=== PATIENT | female | born 1945 | race Caucasian/White ===

== ENCOUNTER 2016-10-13 20:25 | Inpatient (IN) | payer BC, MEDICARE ==
[2016-10-13] MEDS ORDERED: SODIUM CHLORIDE 0.9% 1,000 ML IV STA (20:40)
[2016-10-13] MEDS ORDERED: SODIUM CHLORIDE 0.9% 500 ML IV STA (20:40)
[2016-10-13 21:08] LABS: Basophils % (A) 0 %; CH 29.6; CHCM 33.1; Eosinophils # (A) 0.2 k/uL (0-0.7); Eosinophils % (A) 2 %; HCT 44.8 % (34.0-46.0); HDW 2.47; HGB 14.8 gm/dL (11.4-16.0); Luc # (Auto) 0.19; Luc % (Auto) 2; Lymphocytes # (A) 1.6 k/uL (1.0-4.8); Lymphocytes % (A) 16 %; MCH 29.5 pg (25.0-35.0); MCHC 32.9 g/dL (31.0-37.0); MCV 89.6 fL (80.0-100.0); Monocytes # (A) 0.6 k/uL (0-1.0); Monocytes % (A) 6 %; Neutrophils # (A) 7.2 k/uL (1.3-7.7); Neutrophils % (A) 73 %; RDW 13.3 % (11.5-15.5); WBC 9.8 k/uL (3.8-10.6); WBC (Perox) 9.32
[2016-10-13 21:15] LABS: ALT 24 U/L (9-52); AST 15 U/L (14-36); Alkaline Phosphatase 92 U/L (38-126); Anion Gap 11 mmol/L; Blood Urea Nitrogen 6 mg/dL (7-17); Calcium 10.4 mg/dL (8.4-10.2); Carbon Dioxide 28 mmol/L (22-30); Chloride 103 mmol/L (98-107); Glucose 219 mg/dL (74-99); Non-African American GFR(MDRD) >60 (>60 ml/min/1.73 sqM); Potassium 4.1 mmol/L (3.5-5.1); Sodium 142 mmol/L (137-145); Total Bilirubin 0.3 mg/dL (0.2-1.3); Total Protein 7.6 g/dL (6.3-8.2)
[2016-10-13 21:19] LABS: Partial Thromboplastin Time 23.6 sec (22.0-30.0); Prothrombin Time 9.9 sec (9.0-12.0)
[2016-10-13 21:21] LABS: Glucose,Whole Blood 182 mg/dL (75-99)
[2016-10-13 21:22] LABS: Creatine Kinase 41 U/L (30-135)
--- NOTE | 2016-10-13 21:31 | ED ---
General Adult HPI - General Chief complaint: Neuro Symptoms/Deficit Stated complaint: Numbness on left side Time Seen by Provider: 10/13/16 20:39 Source: patient, RN notes reviewed, old records reviewed Mode of arrival: ambulatory Limitations: no limitations - History of Present Illness Initial comments: This is a 71-year-old female the ER for evaluation. This patient presents today for evaluation of neurological impairment, paresthesias of left leg. Patient has history of smoking, but otherwise is not follow-up with her doctor, is a known diabetic takes no medication. Patient has no fever, no chest pain, no shortness of breath. Patient's symptoms started this afternoon, and continued at this time. Patient is able to ambulate, able to speak, family admits patients never seen a physician before - Related Data Home Medications Medication Instructions Recorded Confirmed Aspirin EC [Ecotrin] 325 mg PO DAILY PRN 10/13/16 10/13/16 Cholecalciferol [Vitamin D3] 1,000 unit PO DAILY 10/13/16 10/13/16 Multivitamins, Thera [Multivitamin 1 tab PO DAILY 10/13/16 10/13/16 (formulary)] Vit A/Vit C/Vit E/Zinc/Copper 1 cap PO DAILY 10/13/16 10/13/16 [ICAPS SOFTGEL] Allergies Allergy/AdvReac Type Severity Reaction Status Date / Time No Known Allergies Allergy Verified 10/13/16 21:12 Review of Systems ROS Statement: Those systems with pertinent positive or pertinent negative responses have been documented in the HPI. ROS Other: All systems not noted in ROS Statement are negative. Past Medical History Past Medical History: No Reported History History of Any Multi-Drug Resistant Organisms: None Reported Past Surgical History: Appendectomy Past Psychological History: No Psychological Hx Reported Smoking Status: Current every day smoker Past Alcohol Use History: None Reported Past Drug Use History: None Reported General Exam - General Exam Comments Initial Comments: NIH of 0 Limitations: no limitations General appearance: alert, in no apparent distress Head exam: Present: atraumatic, normocephalic, normal inspection Eye exam: Present: normal appearance, PERRL, EOMI. Absent: scleral icterus, conjunctival injection, periorbital swelling ENT exam: Present: normal exam, mucous membranes moist Neck exam: Present: normal inspection. Absent: tenderness, meningismus, lymphadenopathy Respiratory exam: Present: normal lung sounds bilaterally. Absent: respiratory distress, wheezes, rales, rhonchi, stridor Cardiovascular Exam: Present: regular rate, normal rhythm, normal heart sounds. Absent: systolic murmur, diastolic murmur, rubs, gallop, clicks GI/Abdominal exam: Present: soft, normal bowel sounds. Absent: distended, tenderness, guarding, rebound, rigid Extremities exam: Present: normal inspection, full ROM, normal capillary refill. Absent: tenderness, pedal edema, joint swelling, calf tenderness Back exam: Present: normal inspection Neurological exam: Present: alert, oriented X3, CN II-XII intact Psychiatric exam: Present: normal affect, normal mood Skin exam: Present: warm, dry, intact, normal color. Absent: rash Course Vital Signs 10/13/16 20:30 Temperature 97.8 F Pulse Rate 87 Respiratory 18 Rate Blood Pressure 202/93 O2 Sat by Pulse 96 Oximetry - Reevaluation(s) Reevaluation #1: 10/13/16 21:55 Patient's symptoms at this point have no significant improvement, there is no neurological deficit found, patient still with paresthesias EKG Findings - EKG Comments: EKG Findings:: EKG shows normal sinus or mastoid 7, pO2 2, QRS 94, QTC 427 Medical Decision Making - Medical Decision Making 71 female ER for evaluation of neurological deficit paresthesias left leg. Left arm. Patient does have diabetes high blood pressure and does not follow with DrLela as well as smoking, patient does have what appears to be old infarct on CT. Patient be admitted for neurological evaluation and control - Lab Data Result diagrams: 10/13/16 20:50 10/13/16 20:50 Lab Results 10/13/16 10/13/16 10/13/16 Range/Units 20:50 20:50 20:50 WBC 9.8 (3.8-10.6) k/uL RBC 5.00 (3.80-5.40) m/uL Hgb 14.8 (11.4-16.0) gm/dL Hct 44.8 (34.0-46.0) % MCV 89.6 (80.0-100.0) fL MCH 29.5 (25.0-35.0) pg MCHC 32.9 (31.0-37.0) g/dL RDW 13.3 (11.5-15.5) % Plt Count 300 (150-450) k/uL Neutrophils % 73 % Lymphocytes % 16 % Monocytes % 6 % Eosinophils % 2 % Basophils % 0 % Neutrophils # 7.2 (1.3-7.7) k/uL Lymphocytes # 1.6 (1.0-4.8) k/uL Monocytes # 0.6 (0-1.0) k/uL Eosinophils # 0.2 (0-0.7) k/uL Basophils # 0.0 (0-0.2) k/uL PT (9.0-12.0) sec INR (<1.1) APTT (22.0-30.0) sec Sodium 142 (137-145) mmol/L Potassium 4.1 (3.5-5.1) mmol/L Chloride 103 (98-107) mmol/L Carbon Dioxide 28 (22-30) mmol/L Anion Gap 11 mmol/L BUN 6 L (7-17) mg/dL Creatinine 0.60 (0.52-1.04) mg/dL Est GFR (MDRD) Af Amer >60 (>60 ml/min/1.73 sqM) Est GFR (MDRD) Non-Af >60 (>60 ml/min/1.73 sqM) Glucose 219 H (74-99) mg/dL POC Glucose (mg/dL) (75-99) mg/dL POC Glu Statistical Analyst ID Calcium 10.4 H (8.4-10.2) mg/dL Total Bilirubin 0.3 (0.2-1.3) mg/dL AST 15 (14-36) U/L ALT 24 (9-52) U/L Alkaline Phosphatase 92 (38-126) U/L Total Creatine Kinase 41 (30-135) U/L CK-MB (CK-2) 1.2 (0.0-2.4) ng/mL CK-MB (CK-2) Rel Index 2.9 Troponin I <0.012 (0.000-0.034) ng/mL Total Protein 7.6 (6.3-8.2) g/dL Albumin 4.4 (3.5-5.0) g/dL 10/13/16 10/13/16 Range/Units 20:50 21:20 WBC (3.8-10.6) k/uL RBC (3.80-5.40) m/uL Hgb (11.4-16.0) gm/dL Hct (34.0-46.0) % MCV (80.0-100.0) fL MCH (25.0-35.0) pg MCHC (31.0-37.0) g/dL RDW (11.5-15.5) % Plt Count (150-450) k/uL Neutrophils % % Lymphocytes % % Monocytes % % Eosinophils % % Basophils % % Neutrophils # (1.3-7.7) k/uL Lymphocytes # (1.0-4.8) k/uL Monocytes # (0-1.0) k/uL Eosinophils # (0-0.7) k/uL Basophils # (0-0.2) k/uL PT 9.9 (9.0-12.0) sec INR 1.0 (<1.1) APTT 23.6 (22.0-30.0) sec Sodium (137-145) mmol/L Potassium (3.5-5.1) mmol/L Chloride (98-107) mmol/L Carbon Dioxide (22-30) mmol/L Anion Gap mmol/L BUN (7-17) mg/dL Creatinine (0.52-1.04) mg/dL Est GFR (MDRD) Af Amer (>60 ml/min/1.73 sqM) Est GFR (MDRD) Non-Af (>60 ml/min/1.73 sqM) Glucose (74-99) mg/dL POC Glucose (mg/dL) 182 H (75-99) mg/dL POC Glu Statistical Analyst ID Maddison Anderson Calcium (8.4-10.2) mg/dL Total Bilirubin (0.2-1.3) mg/dL AST (14-36) U/L ALT (9-52) U/L Alkaline Phosphatase (38-126) U/L Total Creatine Kinase (30-135) U/L CK-MB (CK-2) (0.0-2.4) ng/mL CK-MB (CK-2) Rel Index Troponin I (0.000-0.034) ng/mL Total Protein (6.3-8.2) g/dL Albumin (3.5-5.0) g/dL - Radiology Data Radiology results: report reviewed (CT brain does appear to show old infarcts), image reviewed Disposition Clinical Impression: Cerebrovascular accident, Transient cerebral ischemia, Paresthesia Disposition: ADMITTED IP TO THIS [facility] Condition: Undetermined Referrals: None,Stated [Primary Care Provider] - 1-2 days
[2016-10-13 21:36] LABS: Creatine Kinase MB 1.2 ng/mL (0.0-2.4); Troponin I <0.012 ng/mL (0.000-0.034)
--- NOTE | 2016-10-13 21:39 | CT ---
EXAMINATION TYPE: CT brain wo con DATE OF EXAM: 10/13/2016 9:26 PM COMPARISON: NONE HISTORY: Neuro deficits Left sided CT DLP: 1121 mGycm Automated exposure control for dose reduction was used. FINDINGS: There is hypodensity in the right occipital lobe consistent with old infarct. There is no mass effect nor midline shift. There is 5 mm hypodensity in the genuine right internal capsule consistent with o ld lacunar infarct. Calvarium is intact. There is mild cerebral cortical atrophy. There is no sign of intracranial hemorrhage. There is some hypodensity in the white matter both parietal lobes. IMPRESSION: Old right-sided infarcts. Cerebral atrophy. No acute abnormality. Chronic small vessel ischemia.
[2016-10-13] MEDS: ASPIRIN 325 MG TAB PO STA ×2 (22:34→23:34)
[2016-10-13 23:29] VITALS: BMI 25.4
[2016-10-13] MEDS: SODIUM CHLORIDE 0.9% 1,000 ML IV SCH (23:33)
[2016-10-14 04:49] LABS: Cholesterol 219 mg/dL (<200); HDL Cholesterol 41 mg/dL (40-60); Triglycerides 300 mg/dL (<150)
[2016-10-14] MEDS: INSULIN LISPRO (humaLOG) 300 UNIT/3 ML VIAL SQ SCH ×3 (06:15→17:29)
[2016-10-14 06:18] LABS: Glucose,Whole Blood 125 mg/dL (75-99)
[2016-10-14] MEDS: ASPIRIN 325 MG TAB PO SCH (08:47)
[2016-10-14 11:03] LABS: Hemoglobin A1C 7.6 % (4.2-6.1)
--- NOTE | 2016-10-14 12:01 | US ---
EXAMINATION TYPE: US carotid duplex BILAT DATE OF EXAM: 10/14/2016 COMPARISON: NONE CLINICAL HISTORY: Stenosis. EXAM MEASUREMENTS: RIGHT: Peak Systolic Velocity (PSV) cm/sec ----- Right CCA: 83.5 ----- Right ICA: 113.3 ----- Right ECA: 135.7 ICA/CCA ratio: 1.4 RIGHT: End Diastole cm/sec ----- Right CCA: 22.7 ----- Right ICA: 36.6 ----- Right ECA: 9.7 LEFT: Peak Systolic Velocity (PSV) cm/sec ----- Left CCA: 92.4 ----- Left ICA: 118.6 ----- Left ECA: 153.1 ICA/CCA ratio: 1.3 LEFT: End Diastole cm/sec ----- Left CCA: 22.3 ----- Left ICA: 31.8 ----- Left ECA: 9.3 VERTEBRALS (direction of flow): Right Vertebral: Antegrade Left Vertebral: Antegrade Tortuous, pulsatile vessels. No significant velocity elevations, with moderate plaque. Atheromatous plaque is in the right carotid bulb. Intimal thickening is present. Atheromatous plaque is within the left mid and distal carotid bulb. Visually this appears to narrow the internal carotid artery. Tortuous internal carotid arteries present. Velocities within the internal carotid artery are present. There is some mild external carotid artery velocity elevation bilaterally. IMPRESSION: 1. Atheromatous plaquing and intimal thickening present bilaterally may be greater on the left. 2. Significant flow-limiting stenosis based on velocities is not present. Mild narrowing of less christian n 50% on the be present. Criteria for Assigning % of Stenosis / Diameter reduction (Estimation based on the indirect measurements of the internal carotid artery velocities (ICA PSV). 1. Normal (no stenosis)=ICA PSV < 125 cm/s: ratio < 2.0: ICA EDV<40 cm/s. 2. Less than 50% stenosis=ICA PSV < 125 cm/s: ratio < 2.0: ICA EDV<40 cm/s. 3. 50 to 69% stenosis=ICA PSV of 125 to 230 cm/s: ration 2.0 ? 4.0: ICA EDV 40-100 cm/s. 4. Greater than 70% stenosis to near occlusion= ICA PSV > 230 cm/s: ratio > 4.0: ICA EDV > 100 cm/s. 5. Near occlusion= ICA PSV velocities may be low or undetectable: variable ratio and ICA EDV. 6. Total occlusion=unable to detect flow.
[2016-10-14 12:21] LABS: Glucose,Whole Blood 132 mg/dL (75-99)
[2016-10-14 16:55] LABS: Glucose,Whole Blood 141 mg/dL (75-99)
[2016-10-14] MEDS: SODIUM CHLORIDE 0.9% 1,000 ML IV SCH (17:28)
--- NOTE | 2016-10-14 19:23 | P.CNNES ---
History of Present Illness Consult date: 10/14/16 Reason for Consult: Patient being evaluated for left sided weakness and dysmetria. History of Present Illness: This patient is a 71-year-old right-handed white female who was in her usual state of health until 2 days ago. Patient states she was at home and noticed new symptoms of left-sided numbness and paresthesias initially involving just the left leg. Later it seemed to also involve the left arm. When she stood up and attempted to walk she felt off balance and was unable to keep a steady gait. The symptoms are present only for 2 days. Apparently she has not seen a physician in many years. She is been told in the past that she has prediabetes or diabetes. She is not on any specific medication for treatment of diabetes and stated she is diet-controlled. Patient denies having any previous history of stroke. Due to her symptoms of persistent numbness for 2 days she decided to come to the emergency room where she was seen in [facility] ER. She was seen by Dr. Pham who ordered a computed tomography scan of the brain. CAT scan of the brain revealed evidence of a old right hemispheric stroke. When questioned about stroke the patient once again states she is unaware of having a stroke in the past. The patient's symptoms of numbness are still persistent. For this reason she was advised admission to the hospital. She underwent a carotid Doppler ultrasound today which reveals arthritic Prem plaquing bilaterally greater on the left. There was no significant carotid artery stenosis noted. Patient states her cholesterol has been under good control. Her highest blood sugar today was noted to be 142. She was started on an aspirin but apparently at home has not been taking any medications at all. The patient states that she did experience some heaviness of the left arm and leg but this was only a short time. She was feeling more of a balance issue when she attempted to walk which she attributed to some heaviness in the left leg. She was admitted to the hospital and states that her symptoms have slightly improved since 2 days ago. She still feels her balance is just not right. She does seem to have some difficulty with use of her left arm and does show some mild signs of dysmetria on finger-nose testing. For all these reasons the patient is now been admitted to the hospital for a full stroke evaluation. As mentioned she was unaware of her previous stroke as was noted on her computed tomography scan of the brain. We are recommending an MRI of the brain to be done for further evaluation. Patient denies having previous history of heart disease or coronary artery disease. She states she has been healthy up until this recent spell. Patient is now admitted and neurology has been consulted for further evaluation and recommendations. Review of Systems Constitutional: Denies chills, Denies fever Eyes: denies blurred vision, denies pain Ears, nose, mouth and throat: Denies headache, Denies sore throat Cardiovascular: Denies chest pain, Denies shortness of breath Respiratory: Denies cough Gastrointestinal: Denies abdominal pain, Denies diarrhea, Denies nausea, Denies vomiting Genitourinary: Denies dysuria, Denies hematuria Musculoskeletal: Denies myalgias Integumentary: Denies pruritus, Denies rash Neurological: Reports balance difficulties, Reports gait dysfunction, Reports lack of coordination, Reports paresthesias, Reports sensory deficit, Denies numbness, Denies weakness Psychiatric: Denies anxiety, Denies depression Endocrine: Denies fatigue, Denies weight change Past Medical History Past Medical History: Diabetes Mellitus Additional Past Medical History / Comment(s): DM 15-20 yrs ago, no current treatment History of Any Multi-Drug Resistant Organisms: None Reported Past Surgical History: Appendectomy Past Anesthesia/Blood Transfusion Reactions: No Reported Reaction Past Psychological History: No Psychological Hx Reported Smoking Status: Current every day smoker Past Alcohol Use History: None Reported Past Drug Use History: None Reported - Past Family History Mother Family Medical History: No Reported History Medications and Allergies Home Medications Medication Instructions Recorded Confirmed Type Aspirin EC [Ecotrin] 325 mg PO DAILY PRN 10/13/16 10/13/16 History Cholecalciferol [Vitamin D3] 1,000 unit PO DAILY 10/13/16 10/13/16 History Multivitamins, Thera [Multivitamin 1 tab PO DAILY 10/13/16 10/13/16 History (formulary)] Vit A/Vit C/Vit E/Zinc/Copper 1 cap PO DAILY 10/13/16 10/13/16 History [ICAPS SOFTGEL] Allergies Allergy/AdvReac Type Severity Reaction Status Date / Time No Known Allergies Allergy Verified 10/13/16 21:12 Physical Examination - Vital Signs Vital Signs: Vital Signs Temp Pulse Pulse Resp BP BP Pulse Ox 05/30/17 16:00 97.2 F L 80 16 188/72 93 L 10/14/16 12:00 97.1 F L 73 16 178/80 93 L 10/14/16 08:30 97.1 F L 79 16 178/74 94 L 10/14/16 04:00 72 18 137/67 93 L 10/13/16 23:15 97.4 F L 76 16 175/82 96 10/13/16 23:12 97.4 F L 76 16 175/82 96 10/13/16 22:41 97.8 F 80 16 176/80 99 10/13/16 22:23 79 16 188/84 97 10/13/16 20:30 97.8 F 87 18 202/93 96 Intake and Output 10/14/16 10/14/16 10/14/16 06:59 14:59 22:59 Intake Total 700 240 Output Total 1 Balance 700 240 -1 Intake: IV 700 Sodium Chloride 0.9% 1, 700 000 ml @ 100 mls/hr IV . Q10H [facility] Rx#:[id number] Oral 240 Output: Stool 1 Other: Voiding Method Toilet Toilet # Voids 1 2 2 # Bowel Movements 0 Weight 61.3 kg - Constitutional General appearance: average body habitus, cooperative - EENT EENT: PERRL, mucous membranes moist - Respiratory Respiratory: lungs clear, normal breath sounds - Cardiovascular Cardiovascular: regular rate, normal S1, normal S2 Extremities: no peripheral edema bilaterally - Gastrointestinal Gastrointestinal: normoactive bowel sounds - Integumentary Integumentary: normal - Neurologic Cranial nerve examination: PERRL, EOMI, VFF, V1/V2/V3 grossly intact, face symmetric, tongue midline, intact gag reflex, intact corneal reflex, normal palatal elevation Speech examination: intact Sensorimotor examination: intact Detailed motor examination: grossly full strength in all extremities Motor examination - right side: 4/5: biceps, triceps, wrist flexion, wrist extension, brake lining maker, hip flexors, knee extensors, dorsiflexion, toe extension (EHL) , plantarflexion Motor examination - left side: 4/5: biceps, triceps, wrist flexion, wrist extension, brake lining maker, hip flexors, knee extensors, dorsiflexion, toe extension (EHL) , plantarflexion Detailed sensory examination: intact Reflex and gait examination: intact Reflexes: 1+: ankle, bicep, knee, tricep Cerebellar examination: dysmetria (There is left finger-nose dysmetria noted on exam.) - Musculoskeletal Musculoskeletal: no pain - Psychiatric Psychiatric: mood/affect appropriate, cooperative Results - Laboratory Findings CBC and BMP: 10/13/16 20:50 10/13/16 20:50 Abnormal Lab Findings: Abnormal Labs 10/13/16 10/13/16 10/13/16 20:50 20:50 20:50 BUN 6 L Glucose 219 H POC Glucose (mg/dL) Hemoglobin A1c 7.6 H Calcium 10.4 H Triglycerides 300 H Cholesterol 219 H LDL Cholesterol, Calc 118 H 10/13/16 10/14/16 10/14/16 21:20 06:14 11:58 BUN Glucose POC Glucose (mg/dL) 182 H 125 H 132 H Hemoglobin A1c Calcium Triglycerides Cholesterol LDL Cholesterol, Calc 10/14/16 16:39 BUN Glucose POC Glucose (mg/dL) 141 H Hemoglobin A1c Calcium Triglycerides Cholesterol LDL Cholesterol, Calc Assessment and Plan (1) Acute right arterial ischemic stroke, MCA (middle cerebral artery) Status: Acute Code(s): I63.511 - CEREB INFRC D/T UNSP OCCLS OR STENOS OF RIGHT MID CEREB ART (2) Dysmetria Status: Acute Code(s): R27.8 - OTHER LACK OF COORDINATION (3) Essential hypertension Status: Acute Code(s): I10 - ESSENTIAL (PRIMARY) HYPERTENSION (4) History of stroke Status: Acute Code(s): Z86.73 - PRSNL HX OF TIA (TIA), AND CEREB INFRC W/O RESID DEFICITS Plan: This patient is 71-year-old right-handed white female admitted to hospital with acute left-sided weakness of 2 days duration. Patient was initially experiencing tingling and numbness in the left leg followed by the left arm. She then also noted when walking some heaviness in the left leg. She was brought into the emergency room at [facility] for further evaluation. She was seen in the ER by Dr. Pham. She was sent for computed tomography scan of the brain as well as a carotid Doppler study for further evaluation. CAT scan of the brain revealed evidence of an old right hemispheric stroke which patient was unaware of. She was subsequent admitted to the hospital for further evaluation. Her neurological examination does reveal some evidence of left-sided weakness as well as left-sided finger-nose dysmetria. We are recommending an MRI of the brain for further evaluation to rule out acute stroke. Patient was placed on aspirin daily for secondary stroke prevention. She does have mild essential hypertension which will need to be addressed as well. Patient has not seen a regular medical physician in the last several years. We are recommending that she should have a family physician at the time of discharge. We will await to evaluate the MRI of the brain results and we'll give further recommendations at that time. Her overall prognosis at this time remains guarded. Case was discussed at length with the patient as well as her daughter at bedside. All of their questions were answered. She is aware of our current recommendations and treatment plan. She is in full agreement and we will continue close neurological follow-up with this patient during this admission. Her overall prognosis at this time remains guarded. Time with Patient: Greater than 30
--- NOTE | 2016-10-14 19:52 | HP ---
DATE OF ADMISSION: This patient is a 71-year-old who came in with paresthesias of the left leg; she felt like her left leg had fallen asleep. Patient was having tingling and numbness in her upper arms for a long time. Patient has cervicothoracic nerve impingement; since then patient has had paresthesias of the bilateral upper limbs. Patient has a little bit of weakness in the left lower limb. Patient's neurological examination was significant for positive Romberg sign with eyes closed; with eye open they are fine; Romberg sign is negative, consistent with dorsal column involvement. Patient is a diabetic. Patient does not know that she is diabetic. Hemoglobin A1c is 7.6. Patient had a carotid Doppler which was negative. Patient was started on aspirin. CT of the head is negative. Patient has hypertriglyceridemia and hyperlipidemia as well. Patient denied any fever or chills. Patient denied any headache. Patient denied any nausea or vomiting. Patient's strength is 5/5, but there is some weakness upon making her ambulate in the left leg. Patient has an unsteady gait, for which PT and OT evaluated the patient. They are recommending a walker. Patient is awaiting neurology evaluation. REVIEW OF SYSTEMS: CONSTITUTIONAL: No fever, no malaise, no fatigue. HEENT: No recent visual problems or hearing problems. Denied any sore throat. CARDIOVASCULAR: No chest pain, orthopnea, PND, no palpitations, no syncope. PULMONARY: No shortness of breath, no cough, no hemoptysis. GASTROINTESTINAL: No diarrhea, no nausea, no vomiting, no abdominal pain. Normoactive bowel sounds. NEUROLOGICAL: As described in HPI. HEMATOLOGICAL: Denies any bleeding or petechiae. GENITOURINARY: Denies any burning micturition, frequency, or urgency. MUSCULOSKELETAL/RHEUMATOLOGICAL: Denies any joint pain, swelling, or any muscle pain. ENDOCRINE: Denies any polyuria or polydipsia. The rest of the 14 point review of systems is negative. Home medications include: 1. Aspirin. 2. Cholecalciferol. 3. Multivitamin. ALLERGIES: NO KNOWN DRUG ALLERGIES. PAST MEDICAL HISTORY: 1. Appendectomy. 2. Never diagnosed with diabetes mellitus. Patient does smoke. Denied any alcohol abuse or any drug abuse. FAMILY HISTORY: Significant for diabetes mellitus. PHYSICAL EXAMINATION: VITAL SIGNS: Temperature 97.2, pulse of 80, respiratory rate of 16, blood pressure 188/72. Saturating at 93% on room air. GENERAL: The patient is alert and oriented x3, not in any acute distress. Well developed, well nourished. HEENT: Pupils are round and equally reacting to light. EOMI. No scleral icterus. No conjunctival pallor. Normocephalic, atraumatic. No pharyngeal erythema. No thyromegaly. CARDIOVASCULAR: S1 and S2 present. No murmurs, rubs, or gallops. PULMONARY: Chest is clear to auscultation, no wheezing or crackles. ABDOMEN: Soft, nontender, nondistended, normoactive bowel sounds. No palpable organomegaly. MUSCULOSKELETAL: No joint swelling or deformity. EXTREMITIES: No cyanosis, clubbing, or pedal edema. NEUROLOGICAL: As described in HPI. I did not do sensory testing. Reflexes appeared to be normal in both knee areas. SKIN: No rashes. ASSESSMENT AND PLAN: 1. Left lower limb numbness and minimal weakness. Patient needs to be ruled out for cerebrovascular accident or a transient ischemic attack. Patient most probably has peripheral neuropathy secondary to either diabetes mellitus or chronic low back pain. 2. Diabetes mellitus, newly diagnosed. Patient will be started on metformin upon discharge. Sliding scale here. 3. Hyperlipidemia. Patient needs to go home on atorvastatin. 4. Peripheral neuropathy, for which we will prescribe pregabalin. Will continue with aspirin for now. Further imaging, including MRI, as per Neurology if needed.
[2016-10-14] MEDS: IPRATROPIUM-ALBUTEROL 3 ML NEB INHALATION SCH (20:28)
[2016-10-14] MEDS: PREGABALIN 75 MG CAP PO SCH (20:52)
[2016-10-14 21:05] LABS: Glucose,Whole Blood 127 mg/dL (75-99)
[2016-10-15 05:48] LABS: Glucose,Whole Blood 106 mg/dL (75-99)
[2016-10-15 06:21] LABS: Cholesterol 204 mg/dL (<200); HDL Cholesterol 44 mg/dL (40-60); Triglycerides 116 mg/dL (<150)
[2016-10-15] MEDS: INSULIN LISPRO (humaLOG) 300 UNIT/3 ML VIAL SQ SCH ×3 (06:24→17:22)
--- NOTE | 2016-10-15 06:51 | MR ---
EXAMINATION TYPE: MR brain wo con DATE OF EXAM: 10/15/2016 COMPARISON: CT brain from 2 days ago. HISTORY: Left-sided weakness and dysmetria on admission 2 days ago. TECHNIQUE: Multiplanar, multisequence imaging of the brain and brainstem is performed without IV cont rast. FINDINGS: Diffusion weighted images demonstrate 10 x 6 mm area of increased signal on diffusion weighted images that is fairly isointense to slightly hypointense on ADC mapping that shows T2 hyperintensity and T1 hypointensity consistent with evolving acute/subacute infarct estimated 2-3 days in age seen best se [id number] [id number] image 128. Finding is localized to the lateral thalamus. There is no worrisome extra-axial fluid collection. Ventricular size and shape are felt within normal limits. There are focal and confluent areas of T2 hyperintensity seen throughout the deep and perive ntricular white matter. Lesions are nonspecific in appearance and distribution but most likely on bas is of product of chronic small vessel ischemic change in patient this age. There is old infarct infer ior medial right occipital lobe there is old lacunar infarct high right frontal lobe at level of cent rum semiovale on axial image 23. Old lacunar infarct left cerebellum on axial image 17 is noted. Midline structures demonstrate normal morphology. The craniocervical junction appears within normal limits. Normal vascular flow voids are present. The visualized sinuses are clear and the globes are i ntact. IMPRESSION: 1. Evolving acute/subacute lacunar infarct lateral right thalamus as detailed above. 2. Background of fairly moderate chronic small vessel ischemic change with old lacunar infarcts and o ld inferior medial right occipital lobe infarct all noted.
[2016-10-15] MEDS: ASPIRIN 325 MG TAB PO SCH (08:02)
[2016-10-15] MEDS: IPRATROPIUM-ALBUTEROL 3 ML NEB INHALATION SCH ×3 (08:23→15:41)
[2016-10-15] MEDS: PREGABALIN 75 MG CAP PO SCH (08:50)
[2016-10-15 11:40] VITALS: TEMP 97.8
[2016-10-15 11:43] LABS: Glucose,Whole Blood 172 mg/dL (75-99)
[2016-10-15] MEDS ORDERED: NICOTINE POLACRILEX 2 MG GUM BUCCAL PRN (13:53)
[2016-10-15] MEDS ORDERED: NICOTINE 21MG/24HR PATCH TRANSDERM SCH (14:00)
[2016-10-15] MEDS ORDERED: CLOPIDOGREL 75 MG TAB PO SCH (14:00)
[2016-10-15] MEDS ORDERED: ENOXAPARIN 40 MG/0.4 ML SYRINGE SQ SCH (14:00)
[2016-10-15] MEDS ORDERED: ATORVASTATIN 40 MG TAB PO SCH (14:15)
[2016-10-15 16:00] VITALS: BP 149/65; PULSE 74; RESP 16
--- NOTE | 2016-10-15 18:19 | P.PN ---
Subjective This patient is a 71 year old female admitted yesterday with left sided weakness and possible stroke the patient was seen in neurology consultation yesterday for evaluation of left-sided weakness. Apparently she developed sudden onset of left arm weakness and some degree of hand weights and measures sealer weakness. She was brought into the emergency room yesterday for further evaluation. She underwent a initial computed tomography scan of the brain which was reported negative for acute stroke. Her neurological examination yesterday revealed her to have slight dysmetria on left finger-nose testing as well as mild weakness with a left pronator drift. The patient was recommended to undergo a complete stroke evaluation. She had a MRI of the brain today which was reviewed. MRI reveals evidence of an acute right thalamic infarct. There was also chronic small vessel ischemic changes noted with old lacunar infarcts noted in the right occipital lobe. The results of the MRI were reviewed today with the patient. She has been started on several new antihypertensive medications. Apparently she had not been taking very good care of herself over the last several years. She is now been instructed to follow up with a family physician after discharge from hospital. We've reviewed the results of the MRI today with the patient. She has been able to work with physical therapy and was able to ambulate quite well without left-sided weakness. We did recommend that she be placed on aspirin daily for secondary stroke prevention. She is being considered for discharge home later today and may follow-up in the outpatient neurology clinic in 3-4 weeks. We would recommend that she keep a blood pressure log at home. We have also reinforced that she should have a family physician monitoring her closely over the next several months. Objective - Vital Signs Vital signs: Vital Signs Temp 97.8 F 10/15/16 11:40 Pulse 76 10/15/16 12:07 Resp 20 10/15/16 11:40 BP 143/78 10/15/16 11:40 Pulse Ox 92 L 10/15/16 11:40 Intake & Output 10/14/16 10/15/16 10/15/16 18:59 06:59 18:59 Intake Total 360 200 Output Total 1 Balance 359 200 Weight 61.1 kg 61.1 kg Intake: Oral 360 200 Output: Stool 1 Other: Voiding Method Toilet Toilet Toilet # Voids 2 1 1 # Bowel Movements 0 - Exam Physical Examination: PHYSICAL EXAMINATION: Patient is resting comfortably in bed. VITAL SIGNS: Blood pressure is [149/65]. Heart rate is [74]. Respiration is [16] . Temperature is [97.7]. HEENT: Head is atraumatic, neck is supple, there were no carotid bruits. CHEST: Lungs are clear to auscultation and percussion. CARDIAC: S1, S2 normal rate and rhythm. There is no murmur. ABDOMEN: Soft and nontender. Bowel sounds are present. EXTREMITIES: There is no pedal edema. Peripheral pulses are present. Neurological examination: Patient's neurological examination is unchanged from yesterday. She has minimal left pronator drift on exam. - Labs CBC & Chem 7: 10/13/16 20:50 10/13/16 20:50 Labs: Abnormal Lab Results - Last 24 Hours (Table) 10/14/16 10/14/16 10/15/16 Range/Units 16:39 21:03 05:44 POC Glucose (mg/dL) 141 H 127 H (75-99) mg/dL Cholesterol 204 H (<200) mg/dL LDL Cholesterol, Calc 137 H (0-99) mg/dL 10/15/16 10/15/16 Range/Units 05:47 11:34 POC Glucose (mg/dL) 106 H 172 H (75-99) mg/dL Cholesterol (<200) mg/dL LDL Cholesterol, Calc (0-99) mg/dL Assessment and Plan (1) Acute right arterial ischemic stroke, MCA (middle cerebral artery) Status: Acute Code(s): I63.511 - CEREB INFRC D/T UNSP OCCLS OR STENOS OF RIGHT MID CEREB ART (2) Dysmetria Status: Acute Code(s): R27.8 - OTHER LACK OF COORDINATION (3) Essential hypertension Status: Acute Code(s): I10 - ESSENTIAL (PRIMARY) HYPERTENSION (4) History of stroke Status: Acute Code(s): Z86.73 - PRSNL HX OF TIA (TIA), AND CEREB INFRC W/O RESID DEFICITS Plan: This patient is a 71-year-old female was admitted yesterday with symptoms of left-sided weakness and possible stroke. She was found to have uncontrolled hypertension on admission. She is now been placed on several antihypertensive medications. She was recommended to undergo an MRI of the brain for further evaluation. She had a MRI of the brain performed today the results of which are noted above. MRI reveals evidence of an acute right thalamic infarct. This is likely secondary to uncontrolled hypertension. We have discussed the MRI findings with the patient in detail. We recommend she keep a blood pressure log at home which can be reviewed at her next follow-up visit. She is to continue on 1 aspirin daily for secondary stroke prevention. She has been evaluated by physical therapy and they have discharged her as well. We will continue close neurological follow-up with the patient. She is recommended to schedule a follow-up appointment in the outpatient neurology clinic in 3-4 weeks. Her overall prognosis at this time remains guarded.
[2016-10-15] MEDS ORDERED: ATORVASTATIN 80 MG TAB PO SCH (21:00)
[2016-10-16] MEDS ORDERED: ASPIRIN 81 MG CHEW PO SCH (09:00)
--- NOTE | 2016-10-16 17:32 | DS ---
DATE OF ADMISSION: 10/13/2016 DATE OF DISCHARGE: 10/15/2016 FINAL DIAGNOSES: 1. Cerebrovascular accident, right thalamic infarct, verified by MRI. 2. Diabetes mellitus, type 2. 3. Hyperlipidemia. 4. Peripheral neuropathy. CLINICAL QUALITY MANAGER: Dr. Kelly from Neurology. This is a patient who presented with paresthesias of the left leg and left arm, numbness and tingling. Patient stated that this was present for some time prior to the event that precipitated her visit to the emergency department. Patient did not present with any further stroke-like symptoms of facial drooping or confusion. Neurology was consulted. MRI was done. MRI revealed a right thalamic infarct. Patient's symptoms that she presented with to the left leg have resolved; however, her left arm continues to have mild numbness and tingling. Patient's A1c on admission was found to be 7.6, and patient will be started on metformin. Patient has been up in the hallways with Physical Therapy using a walker, ambulating well. Patient has been cleared by Neurology to be discharged home. PHYSICAL EXAMINATION: NEUROLOGIC: Pupils equal, round, reactive to light. Face is symmetric. Tongue is midline. Motor strength is equal in all extremities. CARDIOVASCULAR: First and second sounds noted. No edema. MUSCULOSKELETAL: Left-sided upper and lower extremity 4/5. Left lower extremity plantar and dorsiflexion intact. Right lower extremity plantar and dorsiflexion intact. Strength 4/5 to right upper and lower extremity. DISCHARGE MEDICATIONS: 1. Cholecalciferol 1000 units p.o. daily. 2. Multivitamins 1 tab p.o. daily. 3. Vitamin A, vitamin C, vitamin E, zinc, copper 1 cap p.o. daily. 4. Metformin 500 mg p.o. b.i.d. 5. Aspirin 81 mg p.o. daily. 6. Atorvastatin 40 mg p.o. daily. 7. Lisinopril/hydrochlorothiazide 10/12.5 mg 1 tab p.o. daily. 8. Nicotine patch 21 mg over 24-hour period daily; change daily. 9. Nicotine/Nicorette gum 2 mg buccal q.4 hours p.r.n. FOLLOWUP: Patient should follow up with Dr. Reyna Shirley on 10/22/[address] Kelly of Neurology on 11/06/2016. [facility] will be visiting the patient while she is convalescing at home. Patient should also follow up with Neurology with an outpatient EEG. Patient has been encouraged to quit smoking. DISPOSITION: Patient will be going home with family support as well as [facility] visiting nursing staff, who will come to see the patient. Patient was seen and examined by nurse practitioner Francisca Carr, and all elements of the case were discussed with attending, Dr. Veliz.
--- NOTE | 2016-10-17 09:12 | DS ---
DATE OF ADMISSION: 10/15/2016 DATE OF DISCHARGE: 10/15/2016 FINAL DIAGNOSES: 1. Acute thalamic stroke, ischemic in nature in a right-handed patient. 2. Hyperlipidemia, uncontrolled. 3. Essential hypertension, emergent, present on admission. 4. Diabetes mellitus type 2, new diagnosis. 5. Chronic nicotine dependence, patient is a smoker. HOSPITAL COURSE: This patient presented with over a week of left leg weakness and some also left distal arm weakness. MRI of the brain did confirm a right thalamic infarct. Carotid Doppler did not show any critical stenosis. Seen by Dr. Essie Kelly from Neurology. The nurse called him and got an okay for discharge. Patient doing much better, getting up out in the hallway. Patient also counseled against smoking. On examination, some weakness in the left leg about 4/5. DISCHARGE MEDICATIONS: 1. Vitamin D3 one thousand units p.o. daily. 2. Multivitamin 1 tablet p.o. daily. 3. ICAPS softgel 1 capsule p.o. daily. 4. Metformin 500 mg p.o. b.i.d. 5. Aspirin 81 mg daily. 6. Lipitor 40 mg p.o. daily. 7. Zestoretic one tablet p.o. daily. 8. Nicotine 20 mg patch. 9. Nicotinic 2 mg p.r.n. for breakthrough. Follow up with Dr. Shirley on 10/24/2016. Follow up with Dr. sEsie Kelly on 11/06/2016. Outpatient PT, OT is being arranged by [employer] teacher. Discussion and DC planning more than 35 minutes. Additionally, 5 to7 minutes were spent on smoking cessation counseling.
== END 2016-10-15 18:23 | disposition home health service (06) | DRG 66 ==
LOC: EC 20:25 → 6SEL 21:53 → OBSVTOIN 10-15 13:01
PROVIDERS: ADMIT Hospitalist; ATTEND Hospitalist
DX: I63.9 Cerebral infarction, unspecified (principal); E11.42 Type 2 diabetes mellitus with diabetic polyneuropathy; E78.5 Hyperlipidemia, unspecified; E78.1 Pure hyperglyceridemia; I10 Essential (primary) hypertension; F17.200 Nicotine dependence, unspecified, uncomplicated; R27.8 Other lack of coordination; R26.81 Unsteadiness on feet; Z86.73 Personal history of transient ischemic attack (TIA), and cerebral infarction without residual deficits; Z79.82 Long term (current) use of aspirin; Z79.899 Other long term (current) drug therapy
CPT/HCPCS: 36415; 70450; 70551; 80053; 80061; 82550; 82553; 83036; 84484; 85025; 85610; 85730; 93005; 93880; 94640; 96360; 96361; 99291

== ENCOUNTER 2017-09-23 14:00 | Inpatient (IN) | payer MEDICARE ==
[2017-09-23] MEDS ORDERED: SODIUM CHLORIDE 0.9% 500 ML IV STA (14:31)
--- NOTE | 2017-09-23 14:34 | ED ---
General Adult HPI - General Chief complaint: Neuro Symptoms/Deficit Stated complaint: poss CVA Time Seen by Provider: 09/23/17 14:00 Source: patient, RN notes reviewed Mode of arrival: wheelchair Limitations: no limitations - History of Present Illness Initial comments: This is a 72-year-old female presents emergency Department with a history of a previous stroke. Patient comes in today complaining of new symptoms of slurred speech which started at 10 AM. Patient denies any numbness or weakness. Patient denies a headache. Patient denies any visual disturbance. Patient denies any chest pain palpitations difficult to breathing or shortness of breath. Patient denies abdominal pain. Patient denies nausea vomiting diarrhea. Patient denies any recent fever chills or cough. - Related Data Home Medications Medication Instructions Recorded Confirmed Lisinopril [Zestril] 2.5 mg PO DAILY 09/23/17 09/23/17 Previous Rx's Medication Instructions Recorded metFORMIN HCL [Metformin HCl] 500 mg PO BID #60 tablet 10/14/16 Aspirin 81 mg PO DAILY 10/15/16 Atorvastatin [Lipitor] 40 mg PO DAILY #30 tab 10/15/16 Allergies Allergy/AdvReac Type Severity Reaction Status Date / Time No Known Allergies Allergy Verified 09/23/17 14:24 Review of Systems ROS Statement: Those systems with pertinent positive or pertinent negative responses have been documented in the HPI. ROS Other: All systems not noted in ROS Statement are negative. Past Medical History Past Medical History: Diabetes Mellitus Additional Past Medical History / Comment(s): DM 15-20 yrs ago, no current treatment History of Any Multi-Drug Resistant Organisms: None Reported Past Surgical History: Appendectomy Past Anesthesia/Blood Transfusion Reactions: No Reported Reaction Past Psychological History: No Psychological Hx Reported Smoking Status: Current every day smoker Past Alcohol Use History: None Reported Past Drug Use History: None Reported - Past Family History Mother Family Medical History: No Reported History General Exam - General Exam Comments Initial Comments: GENERAL: Patient is well-developed and well-nourished. Patient is nontoxic and well- hydrated and is in mild distress. ENT: Neck is soft and supple. No significant lymphadenopathy is noted. Oropharynx is clear. Moist mucous membranes. Neck has full range of motion without eliciting any pain. EYES: The sclera were anicteric and conjunctiva were pink and moist. Extraocular movements were intact and pupils were equal round and reactive to light. Eyelids were unremarkable. PULMONARY: Unlabored respirations. Good breath sounds bilaterally. No audible rales rhonchi or wheezing was noted. CARDIOVASCULAR: There is a regular rate and rhythm without any murmurs gallops or rubs. ABDOMEN: Soft and nontender with normal bowel sounds. No palpable organomegaly was noted. There is no palpable pulsatile mass. SKIN: Skin is clear with no lesions or rashes and otherwise unremarkable. NEUROLOGIC: Patient is alert and oriented x3. Cranial nerves II through XII are grossly intact. Motor and sensory are also intact. Slurred speech. Symmetrical smile. MUSCULOSKELETAL: Normal extremities with adequate strength and full range of motion. LYMPHATICS: No significant lymphadenopathy is noted PSYCHIATRIC: Normal psychiatric evaluation. Normal interpersonal interactions appears functionally intact in deals appropriately with others. No signs of depression. No signs of anxiety. Limitations: no limitations Course Vital Signs 09/23/17 09/23/17 09/23/17 14:02 15:00 15:26 Temperature 97.9 F Pulse Rate 99 86 82 Respiratory 18 16 16 Rate Blood Pressure 201/99 188/77 164/77 O2 Sat by Pulse 98 98 99 Oximetry Medical Decision Making - Medical Decision Making EKG shows normal sinus rhythm 79 bpm WA interval is 152 QRS is 98 QT interval 380 QTC is 444. Patient's CT of the brain shows no acute abnormality. Patient' s chest x-ray shows no acute abnormality. I spoke with Dr. Darrell Durham agreed to admit the patient admitted the patient I consult neurology. - Lab Data Result diagrams: 09/23/17 14:14 09/23/17 14:14 Lab Results 09/23/17 09/23/17 09/23/17 Range/Units 14:14 14:14 14:14 WBC (3.8-10.6) k/uL RBC (3.80-5.40) m/uL Hgb (11.4-16.0) gm/dL Hct (34.0-46.0) % MCV (80.0-100.0) fL MCH (25.0-35.0) pg MCHC (31.0-37.0) g/dL RDW (11.5-15.5) % Plt Count (150-450) k/uL Neutrophils % % Lymphocytes % % Monocytes % % Eosinophils % % Basophils % % Neutrophils # (1.3-7.7) k/uL Lymphocytes # (1.0-4.8) k/uL Monocytes # (0-1.0) k/uL Eosinophils # (0-0.7) k/uL Basophils # (0-0.2) k/uL PT 9.5 (9.0-12.0) sec INR 1.0 (<1.2) APTT 21.3 L (22.0-30.0) sec Sodium 138 (137-145) mmol/L Potassium 4.3 (3.5-5.1) mmol/L Chloride 100 (98-107) mmol/L Carbon Dioxide 23 (22-30) mmol/L Anion Gap 15 mmol/L BUN 7 (7-17) mg/dL Creatinine 0.80 (0.52-1.04) mg/dL Est GFR (CKD-EPI)AfAm 87 (>60 ml/min/1.73 sqM) Est GFR (CKD-EPI)NonAf 75 (>60 ml/min/1.73 sqM) Glucose 471 H* (74-99) mg/dL Calcium 10.1 (8.4-10.2) mg/dL Total Bilirubin 0.3 (0.2-1.3) mg/dL AST 19 (14-36) U/L ALT 23 (9-52) U/L Alkaline Phosphatase 106 (38-126) U/L Total Creatine Kinase 42 (30-135) U/L CK-MB (CK-2) 0.6 (0.0-2.4) ng/mL CK-MB (CK-2) Rel Index 1.4 Troponin I <0.012 (0.000-0.034) ng/mL Total Protein 7.1 (6.3-8.2) g/dL Albumin 4.1 (3.5-5.0) g/dL Acetone, Qual (Negative) 09/23/17 09/23/17 Range/Units 14:14 14:14 WBC 7.0 (3.8-10.6) k/uL RBC 4.20 (3.80-5.40) m/uL Hgb 12.4 (11.4-16.0) gm/dL Hct 35.8 (34.0-46.0) % MCV 85.1 (80.0-100.0) fL MCH 29.5 (25.0-35.0) pg MCHC 34.6 (31.0-37.0) g/dL RDW 12.3 (11.5-15.5) % Plt Count 327 (150-450) k/uL Neutrophils % 74 % Lymphocytes % 16 % Monocytes % 6 % Eosinophils % 2 % Basophils % 1 % Neutrophils # 5.1 (1.3-7.7) k/uL Lymphocytes # 1.1 (1.0-4.8) k/uL Monocytes # 0.4 (0-1.0) k/uL Eosinophils # 0.1 (0-0.7) k/uL Basophils # 0.0 (0-0.2) k/uL PT (9.0-12.0) sec INR (<1.2) APTT (22.0-30.0) sec Sodium (137-145) mmol/L Potassium (3.5-5.1) mmol/L Chloride (98-107) mmol/L Carbon Dioxide (22-30) mmol/L Anion Gap mmol/L BUN (7-17) mg/dL Creatinine (0.52-1.04) mg/dL Est GFR (CKD-EPI)AfAm (>60 ml/min/1.73 sqM) Est GFR (CKD-EPI)NonAf (>60 ml/min/1.73 sqM) Glucose (74-99) mg/dL Calcium (8.4-10.2) mg/dL Total Bilirubin (0.2-1.3) mg/dL AST (14-36) U/L ALT (9-52) U/L Alkaline Phosphatase (38-126) U/L Total Creatine Kinase (30-135) U/L CK-MB (CK-2) (0.0-2.4) ng/mL CK-MB (CK-2) Rel Index Troponin I (0.000-0.034) ng/mL Total Protein (6.3-8.2) g/dL Albumin (3.5-5.0) g/dL Acetone, Qual Negative (Negative) Disposition Clinical Impression: Cerebrovascular accident Disposition: ADMITTED IP TO THIS [facility] Referrals: Mary Garcia MD [Primary Care Provider] - 1-2 days Time of Disposition: 16:09
[2017-09-23 14:51] LABS: Basophils % (A) 1 %; Eosinophils # (A) 0.1 k/uL (0-0.7); Eosinophils % (A) 2 %; HCT 35.8 % (34.0-46.0); HGB 12.4 gm/dL (11.4-16.0); Lymphocytes # (A) 1.1 k/uL (1.0-4.8); Lymphocytes % (A) 16 %; MCH 29.5 pg (25.0-35.0); MCHC 34.6 g/dL (31.0-37.0); MCV 85.1 fL (80.0-100.0); Mean Platelet Volume 6.9; Monocytes # (A) 0.4 k/uL (0-1.0); Monocytes % (A) 6 %; Neutrophils # (A) 5.1 k/uL (1.3-7.7); Neutrophils % (A) 74 %; Platelet Count 327 k/uL (150-450); RDW 12.3 % (11.5-15.5)
--- NOTE | 2017-09-23 14:56 | XR ---
EXAMINATION TYPE: XR chest 2V DATE OF EXAM: 09/23/2017 COMPARISON: NONE HISTORY: Altered mental status, weakness, strokelike symptoms. TECHNIQUE: Frontal and lateral views of the chest are obtained. FINDINGS: There is chronic parenchymal change without suspicious focal air space opacity, pleural ef fusion, or pneumothorax seen. The cardiac silhouette size is within normal limits with atherosclerot ic change in aortic knob. The osseous structures are demineralized. IMPRESSION: No acute cardiopulmonary process.
[2017-09-23 15:05] LABS: Albumin 4.1 g/dL (3.5-5.0); Calcium 10.1 mg/dL (8.4-10.2); Potassium 4.3 mmol/L (3.5-5.1); Total Bilirubin 0.3 mg/dL (0.2-1.3); Total Protein 7.1 g/dL (6.3-8.2)
--- NOTE | 2017-09-23 15:06 | CT ---
EXAMINATION TYPE: CT brain wo con for TPA DATE OF EXAM: 09/23/2017 HISTORY: Possible CVA, right sided paralysis to mouth CT DLP: 1000.9 mGycm. Automated Exposure Control for Dose Reduction was Utilized. TECHNIQUE: CT scan of the head is performed without contrast. COMPARISON: CT head October 13, 2016. MRI brain October 15, 2016. FINDINGS: There is no acute intracranial hemorrhage or midline shift identified. There is diffuse v entricular and sulcal prominence consistent with diffuse age-related cerebral atrophy. There is low- attenuation in the periventricular white matter consistent with chronic small vessel ischemic change. Old infarct inferior aspect right occipital lobe is redemonstrated . There is now old lacunar infarc t anterolateral aspect right thalamus axial image 23 identified. The globes are intact and the visual ized sinuses are clear. IMPRESSION: No acute intracranial hemorrhage or midline shift. There is moderate diffuse age-relate d cerebral atrophy and chronic small vessel ischemic change with old right occipital lobe and lacunar thalamic infarcts all redemonstrated.
[2017-09-23] MEDS ORDERED: SODIUM CHLORIDE 0.9% 1,000 ML IV ONE (15:16)
[2017-09-23 15:19] LABS: Creatine Kinase 42 U/L (30-135)
[2017-09-23 15:25] LABS: Partial Thromboplastin Time 21.3 sec (22.0-30.0); Prothrombin Time 9.5 sec (9.0-12.0)
[2017-09-23 15:32] LABS: Creatine Kinase MB 0.6 ng/mL (0.0-2.4); Troponin I <0.012 ng/mL (0.000-0.034)
[2017-09-23] MEDS ORDERED: INSULIN ASPART 100 UNIT/ML 1 ML 10 ML VIAL SQ ONE (16:00)
[2017-09-23] MEDS ORDERED: ASPIRIN 325 MG TAB PO STA (16:16)
[2017-09-23] MEDS: INSULIN ASPART 100 UNIT/ML 1 ML 10 ML VIAL SQ SCH ×2 (17:32→21:56)
[2017-09-23] MEDS ORDERED: LABETALOL 5 MG/ML VIAL MDV IVP STA (18:31)
[2017-09-23 19:45] VITALS: RESP 18
--- NOTE | 2017-09-23 20:30 | US ---
EXAMINATION TYPE: US carotid duplex BILAT DATE OF EXAM: 09/23/2017 COMPARISON: NONE CLINICAL HISTORY: CVA. CVA EXAM MEASUREMENTS: RIGHT: Peak Systolic Velocity (PSV) cm/sec ----- Right CCA: 98.7 ----- Right ICA: 123.9 ----- Right ECA: 16.1 ICA/CCA ratio: 1.3 RIGHT: End Diastole cm/sec ----- Right CCA: 33.3 ----- Right ICA: 37.2 ----- Right ECA: 13.7 LEFT: Peak Systolic Velocity (PSV) cm/sec ----- Left CCA: 71.3 ----- Left ICA: 88.7 ----- Left ECA: 108.2 ICA/CCA ratio: 1.2 LEFT: End Diastole cm/sec ----- Left CCA: 18.4 ----- Left ICA: 22.5 ----- Left ECA: 9.7 VERTEBRALS (direction of flow): Right Vertebral: Antegrade Left Vertebral: Antegrade Rhythm: Normal Bilateral plaque visualized. No significant stenosis seen IMPRESSION: There is antegrade flow in the vertebral arteries. The images and measurements suggest l ess than 50% stenosis in both internal carotid arteries. There is bilateral plaque formation. Criteria for Assigning % of Stenosis / Diameter reduction (Estimation based on the indirect measurements of the internal carotid artery velocities (ICA PSV). 1. Normal (no stenosis)=ICA PSV < 125 cm/s: ratio < 2.0: ICA EDV<40 cm/s. 2. Less than 50% stenosis=ICA PSV < 125 cm/s: ratio < 2.0: ICA EDV<40 cm/s. 3. 50 to 69% stenosis=ICA PSV of 125 to 230 cm/s: ration 2.0 ? 4.0: ICA EDV 40-100 cm/s. 4. Greater than 70% stenosis to near occlusion= ICA PSV > 230 cm/s: ratio > 4.0: ICA EDV > 100 cm/s. 5. Near occlusion= ICA PSV velocities may be low or undetectable: variable ratio and ICA EDV. 6. Total occlusion=unable to detect flow.
[2017-09-23 20:57] LABS: Glucose,Whole Blood 184 mg/dL (75-99)
[2017-09-23] MEDS: metFORMIN 500 MG TAB PO SCH (21:56)
[2017-09-24 04:15] LABS: Hemoglobin A1C 10.7 % (4.0-6.0)
[2017-09-24 05:49] LABS: Glucose,Whole Blood 207 mg/dL (75-99)
[2017-09-24 06:17] LABS: Cholesterol 199 mg/dL (<200); HDL Cholesterol 40 mg/dL (40-60); LDL Cholesterol,Calculated 132 mg/dL (0-99); Triglycerides 136 mg/dL (<150)
[2017-09-24] MEDS ORDERED: LISINOPRIL 2.5 MG TAB PO SCH (09:00)
[2017-09-24] MEDS: ASPIRIN 325 MG TAB PO SCH (09:08)
[2017-09-24] MEDS: ATORVASTATIN 40 MG TAB PO SCH (09:09)
[2017-09-24] MEDS: INSULIN ASPART 100 UNIT/ML 1 ML 10 ML VIAL SQ SCH ×4 (09:09→22:40)
[2017-09-24] MEDS: metFORMIN 500 MG TAB PO SCH ×2 (09:09→22:41)
--- NOTE | 2017-09-24 09:59 | CONS ---
CONSULTATION DATE OF CONSULTATION: 09/23/2017. CHIEF COMPLAINT: Stroke. HISTORY OF PRESENT ILLNESS: Mrs Ashton is a pleasant 72-year-old female, who was being evaluated today on 09/23/17 by the neurology service per the request of Dr. Ramírez for a stroke. The patient was brought into [facility] Emergency Room with the complaints of sudden onset of slurred speech. She did not have any lateralizing numbness or weakness. She did not have any headaches or dizziness. She denies any swallowing difficulties. The patient does have a previous history of a stroke. which occurred 1 year ago. She was supposed to be on aspirin, but this is not listed as a home medication. She also states that she has history of hypertension, but when she was placed on medications she felt quite fatigued and she discontinued the medication a few weeks ago. In the emergency room, her blood pressure was 201/99. She was started on aspirin and lisinopril and admitted for further workup and management. The patient was also supposed to be on Lipitor at home which she also discontinued. This has been restarted. At the time of my evaluation, she is lying in her bed and appears to be in no acute distress. She is still having dysarthria. A CT scan of the brain was done, which showed old ischemic strokes involving the right occipital lobe and right thalamus. Generalized atrophy and small-vessel ischemic changes were also seen. Her CBC and cardiac enzymes were normal. Her comprehensive metabolic profile was normal except for significant hyperglycemia at 471. PAST MEDICAL HISTORY: Stroke, hypertension, dyslipidemia, diabetes, history of appendectomy. SOCIAL HISTORY: The patient quit smoking 1 year ago. She denied any alcohol or drug use. FAMILY HISTORY: Noncontributory. HOME MEDICATIONS: Reviewed in the chart. ALLERGIES: No known drug allergies. REVIEW OF SYSTEM: CONSTITUTIONAL: Negative. EYES: Negative. ENT: Negative. CARDIOVASCULAR: As mentioned above. RESPIRATORY: Negative. NEUROLOGICAL: As mentioned above. GASTROINTESTINAL: Negative. GENITOURINARY: Negative. PSYCHIATRIC: Negative. MUSCULOSKELETAL: Positive for occasional joint pain. ENDOCRINE: Positive for diabetes. DERMATOLOGICAL: Negative. PHYSICAL EXAM: Vital signs show a temperature of 97.9, pulse 82, respirations 16, blood pressure 164/77. GENERAL APPEARANCE: The patient is a well-developed, elderly female, who appears to be in no acute distress. HEENT: Normocephalic, atraumatic. Right facial drooping is seen. Extraocular muscles are intact. No visual field cut is seen. Neck is supple with no masses felt. CARDIOVASCULAR: Regular rate and rhythm. ABDOMEN: Nontender, nondistended. Extremities showed no edema or clubbing. NEUROLOGICAL EXAM: The patient is awake and oriented x3. Speech is dysarthric. Language testing is normal. Strength is full in all 4 extremities. No pronator drift is seen. Sensory exam was normal to light touch in all 4 extremities. No tremors or seizure-like activity is seen. Cranial nerve testing showed a right facial droop. IMPRESSION: 1. Acute ischemic stroke. 2. History of old stroke. 3. Dysarthria. 4. Right facial weakness. 5. Uncontrolled hypertension. 6. Medication noncompliance. RECOMMENDATION: The patient does appear to have suffered a new ischemic stroke likely involving the left middle cerebral artery. She is still having right facial weakness and dysarthria with no other new neurological symptoms. She has been restarted on aspirin. The patient discontinued her hypertension medications at home without consulting with her physician. The importance of taking these medications were expressed to the patient. She has been restarted on Lipitor as well. I will order an MRI of the brain, EEG, fasting lipid panel, carotid Doppler, and serum homocysteine level. Speech Therapy will be consulted. Continue neuro checks. I will continue to follow with you. Further recommendations to follow. Thank you for allowing me to participate in the care of your patient. If you have any questions, please feel free to contact me. HUANG / GONZÁLEZ: [id number] /
[2017-09-24 11:33] LABS: Glucose,Whole Blood 260 mg/dL (75-99)
--- NOTE | 2017-09-24 12:18 | P.HPIM ---
History of Present Illness H&P Date: 09/24/17 Chief Complaint: Slurred speech and facial droop This is a 72-year-old female, patient of Dr. Garcia. She has a known past medical history of diabetes mellitus type 2, hypertension and previous CVA. Also past history of nicotine dependence. Patient has been noncompliant with her blood pressure medications and diabetes medications. Patient reports that she noticed symptoms with slurred speech and some facial droop around 10:00 yesterday morning. She did continue to proceed with her day however family did become more concerned with the slurring of speech. Therefore she came into the emergency room for further evaluation. She was also found to have right-sided facial droop. A computed tomography scan of the brain was completed showing no acute intracranial hemorrhage or midline shift. There is moderate diffuse age- related cerebral atrophy and chronic small vessel ischemic change with old right occipital lobe and lacunar thalamus infarcts already demonstrated. Patient was placed on a full aspirin. Neurology was consulted. Echo has been ordered. MRI of the brain is pending. Carotid Doppler showed less than 50% stenosis in the bilateral internal carotid arteries. Patient had elevated blood pressures in the emergency room of 207 of 92 she was given labetalol. Blood pressures are showing improvement. Her blood sugars are also on uncontrolled with A1c of 10.7. Acetone was negative in the ER. Blood sugar on admission was 471 and has come down into the 200s. Prior to her stroke like symptoms patient was reporting some left leg swelling and discomfort. Symptoms have resolved. She denies any previous history of DVT or PE. Patient denies any fever chills or sweats. Denies any chest pain or shortness breath. Denies any nausea or vomiting. Denies any bowel movement changes or urinary symptoms. EKG showing normal sinus rhythm. She has on telemetry and that is also revealing a normal sinus rhythm. Review of Systems Review of systems please refer to HPI otherwise unremarkable Past Medical History Past Medical History: CVA/TIA, Diabetes Mellitus, Hyperlipidemia, Hypertension Additional Past Medical History / Comment(s): dx w/DM 15-20 yrs ago was taking metformin but stopped taking it on her own 1 month ago.pt/family stated she had a stroke in 2017 lt side a bit weaker than rt. stated gait unsteady has a cane/ walker but does'nt use. denies any falls. History of Any Multi-Drug Resistant Organisms: None Reported Past Surgical History: Appendectomy, Tubal Ligation Additional Past Surgical History / Comment(s): d&c Past Anesthesia/Blood Transfusion Reactions: No Reported Reaction Smoking Status: Former smoker - Past Family History Mother Family Medical History: Cancer Additional Family Medical History / Comment(s): lung cancer- smoker, gallstones , vein stripping Father Family Medical History: Prostate Disorder Medications and Allergies Home Medications Medication Instructions Recorded Confirmed Type metFORMIN HCL [Metformin HCl] 500 mg PO BID #60 tablet 10/14/16 09/23/17 Rx Aspirin 81 mg PO DAILY 10/15/16 09/23/17 Rx Atorvastatin [Lipitor] 40 mg PO DAILY #30 tab 10/15/16 09/23/17 Rx Lisinopril [Zestril] 2.5 mg PO DAILY 09/23/17 09/23/17 History Allergies Allergy/AdvReac Type Severity Reaction Status Date / Time No Known Allergies Allergy Verified 09/23/17 14:24 Physical Exam Vitals: Vital Signs Temp Pulse Pulse Resp BP BP Pulse Ox 09/24/17 08:00 97.2 F L 77 18 150/85 95 09/24/17 04:00 98.3 F 64 18 123/87 95 09/24/17 00:00 97.9 F 67 18 149/65 96 09/23/17 20:00 97.2 F L 64 18 141/69 97 09/23/17 18:00 96.8 F L 80 18 207/92 99 09/23/17 17:36 76 16 142/78 98 09/23/17 17:26 97.4 F L 80 18 198/90 100 09/23/17 15:26 82 16 164/77 99 09/23/17 15:00 86 16 188/77 98 09/23/17 14:02 97.9 F 99 18 201/99 98 Intake and Output 09/23/17 09/24/17 09/24/17 22:59 06:59 14:59 Output Total 800 Balance -800 Output: Urine 800 Other: Voiding Method Toilet Toilet # Voids 1 Weight 74.5 kg 74.5 kg Head normocephalic Neck supple Lungs clear to auscultation bilaterally no wheezing or crackles Heart regular rate and rhythm S1-S2, no rub or gallop Abdomen is soft nontender nondistended positive bowel sounds no hepatosplenomegaly Extremities no edema Neuro alert and orientated to 3. Right-sided facial droop. Tongue deviated to the right. Slurred speech. Hand philosophy faculty member lower extremity strength equal bilaterally. Results CBC & Chem 7: 09/23/17 14:14 09/23/17 14:14 Labs: Abnormal Lab Results - Last 24 Hours (Table) 09/23/17 09/23/17 09/23/17 Range/Units 14:14 14:14 14:14 APTT 21.3 L (22.0-30.0) sec Glucose 471 H* (74-99) mg/dL POC Glucose (mg/dL) (75-99) mg/dL Hemoglobin A1c 10.7 H (4.0-6.0) % LDL Cholesterol, Calc (0-99) mg/dL 09/23/17 09/24/17 09/24/17 Range/Units 20:55 05:43 05:48 APTT (22.0-30.0) sec Glucose (74-99) mg/dL POC Glucose (mg/dL) 184 H 207 H (75-99) mg/dL Hemoglobin A1c (4.0-6.0) % LDL Cholesterol, Calc 132 H (0-99) mg/dL 09/24/17 Range/Units 11:23 APTT (22.0-30.0) sec Glucose (74-99) mg/dL POC Glucose (mg/dL) 260 H (75-99) mg/dL Hemoglobin A1c (4.0-6.0) % LDL Cholesterol, Calc (0-99) mg/dL Thrombosis Risk Factor Assmnt - Choose All That Apply Each Risk Factor Represents 2 Points: Age 61-74 years Other congenital or acquired thrombophilia - If yes, enter type in comment: No Thrombosis Risk Factor Assessment Total Risk Factor Score: 2 Thrombosis Risk Factor Assessment Level: Low Risk Assessment and Plan Assessment: 1. CVA with slurred speech and right facial droop. MRI of the brain is pending. Computed tomography scan of the brain had shown an old right occipital lobe and lacunar infarcts. Continue with a full aspirin. Neurology is consulted. Neurology workup is in progress. Echo is pending. EKG and telemetry are showing normal sinus rhythm. Patient is also been started on statin. Stroke could be due to patient's uncontrolled blood pressures. We'll continue to monitor. 2. Accelerated hypertension and uncontrolled blood pressures. Patient noncompliant with medications. Patient required labetalol in the ER. Blood sugar on admission 207/92. Blood pressures are better today at 123/87 3. Diabetes mellitus type 2: Uncontrolled blood sugars. A1c is 10.7. Patient' s been noncompliant with her metformin. At this time at metformin and sliding scale. Continue to monitor. Patient may require insulin. Also have her seen by the breastfeeding educator 4. Prior history of CVA 5. Medication noncompliance 6. Recent left lower extremity swelling and discomfort. Check venous Doppler rule out DVT GI prophylaxis Pepcid and DVT prophylaxis Lovenox Time with Patient: Greater than 30 (Greater than 50% of the total time spent in counseling and coordination of care. I performed an examination of the patient and discussed their management with the physician Cement Side Laster. I have reviewed the Physician Cement Side Laster's notes and agree with the documented findings and plan of care)
[2017-09-24] MEDS: FAMOTIDINE 20 MG TAB PO SCH (12:46)
[2017-09-24] MEDS: ENOXAPARIN 40 MG/0.4 ML SYRINGE SQ SCH (12:47)
--- NOTE | 2017-09-24 13:16 | US ---
EXAMINATION TYPE: US venous doppler duplex LE LT DATE OF EXAM: 09/24/2017 1:03 PM COMPARISON: NONE CLINICAL HISTORY: left leg swelling. SIDE PERFORMED: Left TECHNIQUE: The lower extremity deep venous system is examined utilizing real time linear array sonog scott with graded compression, doppler sonography and color-flow sonography. VESSELS IMAGED: External Iliac Vein (EIV) Common Femoral Vein Deep Femoral Vein Greater Saphenous Vein * Femoral Vein Popliteal Vein Proximal Calf Veins (* superficial vessels) Left Leg: Negative for DVT IMPRESSION: 1. No diagnostic evidence of DVT as visualized.
[2017-09-24] MEDS ORDERED: LISINOPRIL 10 MG TAB PO SCH (14:08)
--- NOTE | 2017-09-24 14:35 | P.PN ---
Subjective Progress Note Date: 09/24/17 Principal diagnosis: Stroke Is a pleasant 72-year-old female continuing to be evaluated by the neurology service for stroke. Her presenting symptoms were that of sudden onset of slurred speech. She has a history of a previous stroke about a year ago. Apparently she was noncompliant with her medication. Her presenting blood pressure was 201/99. Recall that his CT of the brain was done and showed an old right occipital and right thalamic stroke. A carotid Doppler showed no hemodynamically significant stenosis. A left lower extremity venous Doppler was also done and DVT was ruled out. An MRI has been performed, but the results are still pending. At the time my exam she is resting comfortably in bed in no acute distress. Objective - Vital Signs Vital signs: Vital Signs Temp 97.0 F L 09/24/17 11:58 Pulse 70 09/24/17 11:58 Resp 18 09/24/17 11:58 BP 180/81 09/24/17 11:58 Pulse Ox 97 09/24/17 11:58 Intake & Output 09/23/17 09/24/17 09/24/17 18:59 06:59 18:59 Intake Total 480 Output Total 800 Balance -800 480 Weight 68.039 kg 74.5 kg 74.5 kg Intake: Oral 480 Output: Urine 800 Other: Voiding Method Toilet # Voids 1 1 - Constitutional General appearance: Present: cooperative, no acute distress - EENT Eyes: Present: PERRLA. Absent: abnormal pupil, ptosis ENT: Present: hearing grossly normal - Neck Neck: Present: normal ROM. Absent: rigidity - Respiratory Respiratory: negative: prolonged expiration, prolonged inspiration - Cardiovascular Rhythm: regular - Gastrointestinal General gastrointestinal: Absent: distended, tenderness - Neurologic Neurologic Comment(s): The patient is alert awake and oriented 3. Speech is dysarthric and language is normal. There is a right facial droop. Strength is 5 out of 5 in bilateral upper and lower extremities. There is no sensory deficit. No tremors or seizures are seen. Cranial nerves II through XII are otherwise intact globally. - Labs CBC & Chem 7: 09/23/17 14:14 09/23/17 14:14 Labs: Abnormal Lab Results - Last 24 Hours (Table) 09/23/17 09/23/17 09/23/17 Range/Units 14:14 14:14 14:14 APTT 21.3 L (22.0-30.0) sec Glucose 471 H* (74-99) mg/dL POC Glucose (mg/dL) (75-99) mg/dL Hemoglobin A1c 10.7 H (4.0-6.0) % LDL Cholesterol, Calc (0-99) mg/dL 09/23/17 09/24/17 09/24/17 Range/Units 20:55 05:43 05:48 APTT (22.0-30.0) sec Glucose (74-99) mg/dL POC Glucose (mg/dL) 184 H 207 H (75-99) mg/dL Hemoglobin A1c (4.0-6.0) % LDL Cholesterol, Calc 132 H (0-99) mg/dL 09/24/17 Range/Units 11:23 APTT (22.0-30.0) sec Glucose (74-99) mg/dL POC Glucose (mg/dL) 260 H (75-99) mg/dL Hemoglobin A1c (4.0-6.0) % LDL Cholesterol, Calc (0-99) mg/dL Assessment and Plan (1) Dysarthria Current Visit: Yes Status: Acute Code(s): R47.1 - DYSARTHRIA AND ANARTHRIA SNOMED Code(s): 5627147 (2) Weakness on right side of face Current Visit: Yes Status: Acute Code(s): R29.810 - FACIAL WEAKNESS SNOMED Code(s): 22795234 (3) Noncompliance Current Visit: Yes Status: Suspected Code(s): Z91.19 - PATIENT'S NONCOMPLIANCE W OTH MEDICAL TREATMENT AND REGIMEN SNOMED Code(s): 2278968 (4) Cerebrovascular accident Current Visit: Yes Status: Acute Code(s): I63.9 - CEREBRAL INFARCTION, UNSPECIFIED SNOMED Code(s): 983577338 (5) Essential hypertension Current Visit: No Status: Chronic Code(s): I10 - ESSENTIAL (PRIMARY) HYPERTENSION SNOMED Code(s): 95602395 (6) History of stroke Current Visit: No Status: Chronic Code(s): Z86.73 - PRSNL HX OF TIA (TIA), AND CEREB INFRC W/O RESID DEFICITS SNOMED Code(s): 005439726 Plan: The patient was placed likely suffered a new ischemic stroke most likely involving the left middle cerebral artery. She continues to have right facial weakness and dysarthria. She is having no problems swallowing. Aspirin has been restarted. She will continue her antihypertensive and Lipitor. She'll continue working with speech therapy, physical and occupational therapy. Medication compliance was strongly encouraged. Barring any significant of her seen abnormalities on her MRI of the brain she would be cleared from a neurological standpoint to continue further rehabilitation. I have performed a history and physical on the above patient. I have reviewed the above note, and agree.
--- NOTE | 2017-09-24 16:29 | P.CONS ---
History of Present Illness - Chief Complaint Gait disturbance - History of Present Illness I had the opportunity to see patient for inpatient rehab consultation regarding gait disturbance. She was admitted to [facility] September 23 with slurring of speech and right facial weakness, history of previous stroke. Seen in consultation by Dr. Mercer for the stroke. Head CT demonstrated moderate age-related changes and small vessel change. Chest x-ray negative. Carotid Doppler was less than 50% stenosis right and left internal carotid. Venous Doppler negative right and left leg. Brain MRI report pending. PT reports supervision for bed mobility but minimal assistance for transfers and gait 100 feet with roller walker. OT reports supervision for upper dressing but minimal assistance for lower dressing, bathing, toileting and basic self-care transfers. Speech therapy assess swallow and allowing pured, regular and thin liquid. Previous functional history as elicited patient: 72-year-old right-handed white female is lives in one floor home alone. Retired. Independent with cooking, laundry, driving, standing shower and gait without device. History smoking in the remote past but doesn't smoke or drink currently. Dr. Garcia is regular doctor. Family history of cancer in mother. Review of Systems Review of systems: ENT: Denies sneezes or discharge. Eyes: Denies discharge or photophobia. Cardiac: Denies chest pain or palpitation. Pulmonary: Denies cough or shortness of breath. Breast: Denies discharge or lumps. Gastrointestinal: Denies nausea, emesis, constipation, diarrhea. Genitourinary: Denies discharge or frequency. Musculoskeletal: Denies muscle or bone aches. Neurologic: Right facial numbness. Describes weakness bilateral. Endocrine: Denies shakes or sweats. Oncology: Denies cancers. Dermatologic: Denies rash, itching, pruritus. ALLERGY/immunology: Denies sneezes, rashes. Past Medical History Past Medical History: CVA/TIA, Diabetes Mellitus, Hyperlipidemia, Hypertension Additional Past Medical History / Comment(s): dx w/DM 15-20 yrs ago was taking metformin but stopped taking it on her own 1 month ago.pt/family stated she had a stroke in 2016 lt side a bit weaker than rt. stated gait unsteady has a cane/ walker but does'nt use. denies any falls. History of Any Multi-Drug Resistant Organisms: None Reported Past Surgical History: Appendectomy, Tubal Ligation Additional Past Surgical History / Comment(s): d&c Past Anesthesia/Blood Transfusion Reactions: No Reported Reaction Smoking Status: Former smoker - Past Family History Mother Family Medical History: Cancer Additional Family Medical History / Comment(s): lung cancer- smoker, gallstones , vein stripping Father Family Medical History: Prostate Disorder Medications and Allergies Home Medications Medication Instructions Recorded Confirmed Type metFORMIN HCL [Metformin HCl] 500 mg PO BID #60 tablet 10/14/16 09/23/17 Rx Aspirin 81 mg PO DAILY 10/15/16 09/23/17 Rx Atorvastatin [Lipitor] 40 mg PO DAILY #30 tab 10/15/16 09/23/17 Rx Lisinopril [Zestril] 2.5 mg PO DAILY 09/23/17 09/23/17 History Allergies Allergy/AdvReac Type Severity Reaction Status Date / Time No Known Allergies Allergy Verified 09/23/17 14:24 Physical Exam Vitals: Vital Signs Temp Pulse Pulse Resp BP BP Pulse Ox 09/24/17 16:00 97.4 F L 68 18 174/79 96 09/24/17 11:58 97.0 F L 70 18 180/81 97 09/24/17 08:00 97.2 F L 77 18 150/85 95 09/24/17 04:00 98.3 F 64 18 123/87 95 09/24/17 00:00 97.9 F 67 18 149/65 96 09/23/17 20:00 97.2 F L 64 18 141/69 97 09/23/17 18:00 96.8 F L 80 18 207/92 99 09/23/17 17:36 76 16 142/78 98 09/23/17 17:26 97.4 F L 80 18 198/90 100 Intake and Output 09/24/17 09/24/17 09/24/17 06:59 14:59 22:59 Intake Total 480 Balance 480 Intake: Oral 480 Other: Voiding Method Toilet # Voids 1 Weight 74.5 kg 74.5 kg Skin: Good color, texture, turgor. General: Medium to overweight build and comfortable appearance. Head: Normocephalic, atraumatic. Eyes: Symmetric. Pupils equal round. Ears: Symmetric. Hearing within normal limits. Mouth: Clear. Neck: Supple. Carotid without bruit. Cardiac: Regular rate and rhythm. Lungs: Clear anteriorly and posteriorly. Abdomen: Soft active nontender. Extremities: Normal tone. Neurological: Mental status: Alert, cooperative, pleasant. Cranial nerves: Symmetric facial tone and trapezius. Motor: Normal strength and isolation all 4 limbs. Perhaps mildly apraxic right handed ankle. Sensation: Intact throughout. DTRs: Symmetric and equal throughout. Mobility: Would require minimal assistance to sit and stand. Results CBC & Chem 7: 09/23/17 14:14 09/23/17 14:14 Labs: Abnormal Lab Results - Last 24 Hours (Table) 09/23/17 09/23/17 09/24/17 Range/Units 14:14 20:55 05:43 POC Glucose (mg/dL) 184 H (75-99) mg/dL Hemoglobin A1c 10.7 H (4.0-6.0) % LDL Cholesterol, Calc 132 H (0-99) mg/dL 09/24/17 09/24/17 Range/Units 05:48 11:23 POC Glucose (mg/dL) 207 H 260 H (75-99) mg/dL Hemoglobin A1c (4.0-6.0) % LDL Cholesterol, Calc (0-99) mg/dL Chest x-ray: report reviewed (Negative.) CT Scan - head: report reviewed (Moderate age-related change and small vessel change.) MRI - head: report reviewed (Pending.) Venous US: report reviewed (Venous Doppler negative. Carotid duplex with less than 50% stenosis bilateral internal carotid.) Assessment and Plan (1) Acute right arterial ischemic stroke, MCA (middle cerebral artery) Current Visit: No Status: Acute Code(s): I63.511 - CEREB INFRC D/T UNSP OCCLS OR STENOS OF RIGHT MID CEREB ART SNOMED Code(s): 537458905 Plan: Impression: 1. Gait disturbance. 2. Acute right MCA stroke with right facial weakness and numbness. 3. History of previous stroke. 4. Diabetes. 5. Hypertension. 6. Dyslipidemia. Constant plan: At this time PT, OT, ACID REGENERATOR all ongoing. Safety concerns noted. At this time, would anticipate need and benefit of inpatient rehab. This possibility was discussed with patient and she seems agreeable.
[2017-09-24 16:58] LABS: Glucose,Whole Blood 159 mg/dL (75-99)
--- NOTE | 2017-09-24 17:17 | EEG ---
ELECTROENCEPHALOGRAM REPORT DATE OF SERVICE: 09/24/2017. REASON FOR TESTING: Stroke. DESCRIPTION OF THE PROCEDURE: This EEG was performed using a 21 channel digital electroencephalograph, following international 10-20 system. DESCRIPTION OF THE RECORDING: From the beginning of the tracing, and with patient's eyes closed, the background rhythm was mostly consisting of 8-9 Hz alpha frequency in the posterior occipital leads. No obvious asymmetry is seen. Occasional movement and muscle artifacts are seen. Photic stimulation was performed with a good driving response seen. No pathological waves were elicited. Hyperventilation was not performed. The patient does reach stage II of sleep during the tracing and occasional sleep spindles are seen. No epileptiform discharges were seen. Her EKG lead showed a regular rate and rhythm. INTERPRETATION: This asleep and awake EEG can be considered within normal limits. There is no asymmetry seen. No epileptiform discharges were noticed. The absence of epileptiform discharges does not rule out the diagnosis of epilepsy, therefore clinical correlation is recommended. MMMADDY / GONZÁLEZ: [id number] /
--- NOTE | 2017-09-24 18:13 | MR ---
EXAMINATION TYPE: MR brain wo con DATE OF EXAM: 09/24/2017 COMPARISON: MRI brain October 15, 2016. CT brain from yesterday. HISTORY: Acute CVA, right-sided facial paralysis on admission yesterday. TECHNIQUE: Multiplanar, multisequence imaging of the brain and brainstem is performed without IV cont rast. FINDINGS: Diffusion weighted images demonstrate oval 1 cm area left le radiata posterior frontal lobe image 152 series 305 with increased signal on diffusion-weighted images, diminished signal on ADC mapping shows subtle T1 hypointensity and T2 hyperintensity consistent with evolving acute infarct. Additiona l areas of involvement are seen on image 144 and 160. There is no worrisome extra-axial fluid collection. There is diffuse ventricular and sulcal prominenc e consistent with diffuse cerebral atrophy. There are focal and confluent areas of T2 hyperintensity seen throughout the deep and periventricular white matter bilaterally. Lesions are nonspecific in jigar earance and distribution are most likely on basis of product of chronic small vessel ischemic change. There is old infarct in the inferior medial right occipital lobe redemonstrated. Old lacunar infarct right thalamus is present axial image 16. Midline structures demonstrate normal morphology. The craniocervical junction appears within normal limits. Normal vascular flow voids are present. The visualized sinuses are clear and the globes are i ntact. IMPRESSION: 1. There is new evolving acute infarct posterior left frontal lobe at level of coronal radiata as det adithya above. 2. There is background mild diffuse cerebral atrophy with moderate to advanced chronic small vessel i schemic change and old medial right occipital lobe infarct and right thalamic lacunar infarct all are redemonstrated.
[2017-09-24 21:08] LABS: Glucose,Whole Blood 161 mg/dL (75-99)
[2017-09-25 05:56] LABS: Glucose,Whole Blood 172 mg/dL (75-99)
[2017-09-25 06:44] LABS: Basophils % (A) 0 %; Eosinophils # (A) 0.2 k/uL (0-0.7); Eosinophils % (A) 3 %; HCT 32.2 % (34.0-46.0); HGB 11.2 gm/dL (11.4-16.0); Lymphocytes # (A) 1.4 k/uL (1.0-4.8); Lymphocytes % (A) 20 %; MCH 29.4 pg (25.0-35.0); MCHC 34.7 g/dL (31.0-37.0); MCV 84.8 fL (80.0-100.0); Monocytes # (A) 0.5 k/uL (0-1.0); Monocytes % (A) 8 %; Neutrophils # (A) 4.7 k/uL (1.3-7.7); Neutrophils % (A) 66 %; Platelet Count 294 k/uL (150-450); RDW 12.5 % (11.5-15.5); WBC 7.1 k/uL (3.8-10.6)
[2017-09-25 06:55] LABS: ALT 33 U/L (9-52); AST 16 U/L (14-36); Albumin 3.4 g/dL (3.5-5.0); Alkaline Phosphatase 88 U/L (38-126); Anion Gap 11 mmol/L; Blood Urea Nitrogen 9 mg/dL (7-17); Carbon Dioxide 26 mmol/L (22-30); Chloride 104 mmol/L (98-107); Glucose 175 mg/dL (74-99); Potassium 4.3 mmol/L (3.5-5.1); Sodium 141 mmol/L (137-145); Total Bilirubin 0.3 mg/dL (0.2-1.3)
[2017-09-25] MEDS: INSULIN ASPART 100 UNIT/ML 1 ML 10 ML VIAL SQ SCH ×2 (07:00→12:23)
[2017-09-25] MEDS: FAMOTIDINE 20 MG TAB PO SCH (08:43)
[2017-09-25] MEDS: ASPIRIN 325 MG TAB PO SCH (08:43)
[2017-09-25] MEDS: ENOXAPARIN 40 MG/0.4 ML SYRINGE SQ SCH (08:44)
[2017-09-25] MEDS: metFORMIN 500 MG TAB PO SCH (08:44)
[2017-09-25] MEDS: ATORVASTATIN 40 MG TAB PO SCH (08:44)
--- NOTE | 2017-09-25 10:33 | ECHOF ---
Referral Reason:CVA MEASUREMENTS -------- HEIGHT: 157.5 cm WEIGHT: 74.4 kg BP: IVSd: 1.1 cm (0.6 - 1.1) LVIDd: 4.6 cm (3.9 - 5.3) LVPWd: 1.1 cm (0.6 - 1.1) IVSs: 1.4 cm LVIDs: 2.0 cm LVPWs: 1.6 cm Ao Diam: 2.6 cm (2.0 - 3.7) LA Diam: 3.0 cm (2.7 - 3.8) MV E Hunter: 0.83 m/s MV DecT: 261 ms MV A Hunter: 1.13 m/s MV E/A Ratio: 0.74 RAP: 5.00 mmHg RVSP: 16.63 mmHg FINDINGS -------- Sinus rhythm. This was a technically adequate study. The left ventricular size is normal. Left ventricular wall thickness is normal. Overall left vent ricular systolic function is normal with, an EF between 55 - 60 %. The right ventricle is normal in size and function. The left atrium is normal in size. The right atrium is normal in size. Lumason used The aortic valve is trileaflet, and appears structurally normal. No aortic stenosis or regurgitation. The mitral valve leaflets are mildly thickened. There is trace mitral regurgitation. Trace tricuspid regurgitation present. The right ventricular systolic pressure, as measured by Dopp ler, is 16.63mmHg. Pulmonic valve appears structurally normal. The pericardium is normal. CONCLUSIONS -------- 1. Sinus rhythm. 2. This was a technically adequate study. 3. The left ventricular size is normal. 4. Left ventricular wall thickness is normal. 5. Overall left ventricular systolic function is normal with, an EF between 55 - 60 %. 6. The right ventricle is normal in size and function. 7. The left atrium is normal in size. 8. The right atrium is normal in size. 9. Lumason used 10. The aortic valve is trileaflet, and appears structurally normal. No aortic stenosis or regurgitat ion. 11. The mitral valve leaflets are mildly thickened. 12. There is trace mitral regurgitation. 13. Trace tricuspid regurgitation present. 14. The right ventricular systolic pressure, as measured by Doppler, is 16.63mmHg. 15. Pulmonic valve appears structurally normal. 16. The pericardium is normal. CATTYMAN: Yaneth Feliciano RDCS
[2017-09-25 11:59] LABS: Glucose,Whole Blood 170 mg/dL (75-99)
[2017-09-25 13:23] VITALS: TEMP 98
--- NOTE | 2017-09-25 14:16 | P.DS ---
Providers Date of admission: 09/23/17 16:16 Expected date of discharge: 09/25/17 Attending physician: Pauline Ramírez Consults: 09/23/17 16:17 Consult Physician Routine Consulting Provider: Thelma Mercer Consult Reason/Comments: CVA Do you want consulting provider notified?: Yes 09/24/17 11:51 Consult Physician Routine Consulting Provider: Santhosh Reynolds Consult Reason/Comments: inpatient rehab Do you want consulting provider notified?: Yes Primary care physician: Mary Garcia Hospital Course: Discharge diagnosis 1. CVA with slurred speech and right facial droop. MRI shows evidence of a new evolving acute infarct posterior left frontal lobe at the level of coronal radiata. Computed tomography scan of the brain had shown an old right occipital lobe and lacunar infarcts. Continue with a full aspirin and statin. EKG and telemetry are showing normal sinus rhythm. Stroke could be due to patient's uncontrolled blood pressures. Carotid Doppler shows less than 50% stenosis bilateral internal carotid arteries. EEG showed no evidence of seizure activity. Echo shows an EF of 55-60% with no significant valvular abnormality 2. Hypertensive urgency present on admission. Patient noncompliant with medications. Patient required labetalol in the ER. Blood sugar on admission 207/92. Blood pressures have shown improvement. Lisinopril was increased to 10 mg daily 3. Diabetes mellitus type 2: With hyperglycemia. A1c is 10.7. Patient's been noncompliant with her metformin. Continue metformin. Glipizide added. Sugars have shown improvement 4. Prior history of CVA 5. Medication noncompliance 6. Recent left lower extremity swelling and discomfort. Doppler negative for DVT Hospital course This is a 72-year-old female, patient of Dr. Garcia. She has a known past medical history of diabetes mellitus type 2, hypertension and previous CVA. Also past history of nicotine dependence. Patient has been noncompliant with her blood pressure medications and diabetes medications. Patient reports that she noticed symptoms with slurred speech and some facial droop around 10:00 yesterday morning. She did continue to proceed with her day however family did become more concerned with the slurring of speech. Therefore she came into the emergency room for further evaluation. She was also found to have right-sided facial droop. A computed tomography scan of the brain was completed showing no acute intracranial hemorrhage or midline shift. There is moderate diffuse age- related cerebral atrophy and chronic small vessel ischemic change with old right occipital lobe and lacunar thalamus infarcts already demonstrated. Patient was placed on a full aspirin. Neurology was consulted. Echo has been ordered. MRI of the brain is pending. Carotid Doppler showed less than 50% stenosis in the bilateral internal carotid arteries. Patient had elevated blood pressures in the emergency room of 207 of 92 she was given labetalol. Blood pressures are showing improvement. Her blood sugars are also on uncontrolled with A1c of 10.7. Acetone was negative in the ER. Blood sugar on admission was 471 and has come down into the 200s. Prior to her stroke like symptoms patient was reporting some left leg swelling and discomfort. Symptoms have resolved. She denies any previous history of DVT or PE. Patient denies any fever chills or sweats. Denies any chest pain or shortness breath. Denies any nausea or vomiting. Denies any bowel movement changes or urinary symptoms. EKG showing normal sinus rhythm. She has on telemetry and that is also revealing a normal sinus rhythm. Patient was seen evaluated by neurology. MRI of the brain did show evidence of a new stroke. Patient still having evidence of slurred speech and right facial droop. She is tolerating a dysphagia 3 chopped diet. She was able to work with physical therapy. She was been accepted to the [facility] inpatient rehab program with Dr. Duran. Patient is medically stable for discharge. Test results as stated above. Patient will continue an aspirin and statin. Lisinopril was increased during this admission for better blood pressure control and glipizide added for her blood sugar control. Please refer to chart for any further details. I performed an examination of the patient and discussed their management with the physician Quality Associate. I have reviewed the Physician Quality Associate's notes and agree with the documented findings and plan of care Patient Condition at Discharge: Stable Plan - Discharge Summary Discharge Rx Participant: No New Discharge Prescriptions: New Aspirin 325 mg PO DAILY tab glipiZIDE [Glucotrol] 2.5 mg PO AC-TID tab Lisinopril [Zestril] 10 mg PO DAILY #0 tab Continue metFORMIN HCL [Metformin HCl] 500 mg PO BID #60 tablet Atorvastatin [Lipitor] 40 mg PO DAILY #30 tab Discontinued Aspirin 81 mg PO DAILY Lisinopril [Zestril] 2.5 mg PO DAILY Discharge Medication List metFORMIN HCL [Metformin HCl] 500 mg PO BID #60 tablet 10/14/16 [Rx] Atorvastatin [Lipitor] 40 mg PO DAILY #30 tab 10/15/16 [Rx] Aspirin 325 mg PO DAILY tab 09/25/17 [Rx] Lisinopril [Zestril] 10 mg PO DAILY #0 tab 09/25/17 [Rx] glipiZIDE [Glucotrol] 2.5 mg PO AC-TID tab 09/25/17 [Rx] Follow up Appointment(s)/Referral(s): Thelma Mercer MD [STAFF PHYSICIAN] - 2 Weeks Mary Garcia MD [Primary Care Provider] - 1 Week Patient Instructions/Handouts: Ischemic Stroke (DC) Activity/Diet/Wound Care/Special Instructions: Diet: diabetic, cardiac. Dysphagia level III: Chopped Activity as tolerated Discharge to [facility] inpatient rehab Discharge Disposition: OTHER INSTITUTION NOT DEFINED
[2017-09-25 15:10] VITALS: BP 176/85; PULSE 78
== END 2017-09-25 17:49 | disposition other institution (70) | DRG 66 ==
LOC: EC 14:00 → 6SEL 16:16
PROVIDERS: ADMIT Internal Medicine; ATTEND Internal Medicine
DX: I63.9 Cerebral infarction, unspecified (principal); E11.65 Type 2 diabetes mellitus with hyperglycemia; E78.5 Hyperlipidemia, unspecified; I10 Essential (primary) hypertension; I16.0 Hypertensive urgency; R47.1 Dysarthria and anarthria; R29.810 Facial weakness; R26.9 Unspecified abnormalities of gait and mobility; Z79.82 Long term (current) use of aspirin; Z79.84 Long term (current) use of oral hypoglycemic drugs; Z79.899 Other long term (current) drug therapy; Z90.49 Acquired absence of other specified parts of digestive tract; Z86.73 Personal history of transient ischemic attack (TIA), and cerebral infarction without residual deficits; Z87.891 Personal history of nicotine dependence; Z91.128 Patient's intentional underdosing of medication regimen for other reason; R29.702 NIHSS score 2; Z80.1 Family history of malignant neoplasm of trachea, bronchus and lung
CPT/HCPCS: 36415; 70450; 70551; 71046; 80053; 80061; 82009; 82550; 82553; 83036; 83090; 84484; 85025; 85610; 85730; 93005; 93306; 93880; 95819